=== PATIENT | male | born 1990 | race Two or more races ===

== ENCOUNTER 2018-01-15 21:53 | Emergency (ER) | payer SELFPAY ==
[~2018-01-15] VITALS: Ht 162.6 cm; Wt 54.4 kg
[2018-01-15 22:14] VITALS: BP 115/72
[2018-01-15] MEDS ORDERED: Bacitracin Oint UD TOPIC ONE ×2 (22:29→22:45)
[2018-01-15] MEDS ORDERED: Lidocaine 1% Plain 30 ml INJ ONE (22:30)
[2018-01-15 23:00] VITALS: BP 115/72
--- NOTE | 2018-01-15 23:37 | Emergency Room Report ---
History of Present Illness General Chief Complaint: Laceration Source: Patient Present Illness HPI 27-year-old male p/w laceration brought in by law enforcement. Does not know how he got it, but states that he got it 2 days ago no other complaints. Tdap is up-to-date Allergies: Coded Allergies: No Known Allergies (Unverified , 01/15/18) Patient History Past Medical History: see triage record Past Surgical History: none Pertinent Family History: none Reviewed Nursing Documentation: PMH: Agreed; PSxH: Agreed Nursing Documentation-PMH Past Medical History: No Stated History Review of Systems All Other Systems: negative except mentioned in HPI Physical Exam Vital Signs Date Time Temp Pulse Resp B/P (MAP) Pulse Ox O2 Delivery O2 Flow Rate FiO2 01/15/18 21:56 98.0 68 14 115/72 100 Room Air 98.1 Sp02 EP Interpretation: reviewed, normal General Appearance: normal inspection, well appearing, no apparent distress, alert, GCS 15, non-toxic Head: normocephalic - Right eyebrow with 1 cm linear laceration, not gaping wound not bleeding Eyes: bilateral eye normal inspection, bilateral eye PERRL, bilateral eye EOMI ENT: normal ENT inspection, normal pharynx, normal voice, moist mucus membranes Neck: normal inspection, full range of motion, supple Respiratory: normal inspection, lungs clear, normal breath sounds, no respiratory distress, no retraction, no wheezing, speaking full sentences, chest symmetrical Cardiovascular #1: normal inspection, regular rate, rhythm, no edema, normal capillary refill Cardiovascular #2: 2+ radial (R), 2+ radial (L) Gastrointestinal: normal inspection, non tender, soft, non-distended, no guarding Genitourinary: no CVA tenderness Musculoskeletal: normal inspection, back normal, normal range of motion, non- tender Neurologic: normal inspection, alert, oriented x3, responsive, motor strength/ tone normal, sensory intact, normal gait, speech normal Psychiatric: normal inspection, judgement/insight normal, memory normal Skin: normal inspection, normal color, no rash, warm/dry, well hydrated, normal turgor Medical Decision Making Diagnostic Impression: Primary Impression: Laceration of eyebrow, right ER Course 27-year-old male p/w laceration occurred 2 days ago DDX: Laceration, no signs of infection ER course: Laceration was irrigated, bacitracin placed, Steri-Strips placed. I did not repair the wound as it is more than 2 days out Disposition: Patient will be discharged to law enforcement. Strict return precautions discussed with patient such as fever, chills, increasing bleeding to site, purulent drainage, rapid swelling or redness to area. Patient verbalizes understanding. Please note that this Emergency Department Report was dictated using [employer]beef trimmer technology software, occasionally this can lead to erroneous entry secondary to interpretation by the dictation equipment Last Vital Signs Date Time Temp Pulse Resp B/P (MAP) Pulse Ox O2 Delivery O2 Flow Rate FiO2 01/15/18 23:00 98.1 68 14 115/72 100 Room Air 98.1 Disposition: HOME, SELF-CARE Condition: Improved Departure Forms: [facility] Clearance Patient Instructions: Nonsutured Laceration Care Additional Instructions: please see your doctor for wound check in 1 week Barbara Dukes M.D. Jan 15, 2018 23:37
== END 2018-01-15 23:00 ==
LOC: EMR 23:00
DX: S01.111A Laceration without foreign body of right eyelid and periocular area, initial encounter (principal); X58.XXXA Exposure to other specified factors, initial encounter; Y92.9 Unspecified place or not applicable
CPT/HCPCS: 99283